=== PATIENT | female | born 1975 | race African-American/Black ===

== ENCOUNTER 2019-11-28 00:32 | Emergency (ER) | payer SELFPAY ==
[~2019-11-28] VITALS: Ht 162.6 cm; Wt 59.0 kg
--- NOTE | 2019-11-28 01:15 | PHYS DOC ---
Past History Past Medical History: Anxiety, GERD, Other Past Surgical History: Appendectomy, , Other Smoking: Cigarettes, Greater than 1 pack/day Alcohol Use: None Drug Use: Cocaine, Marijuana, Methamphetamine General Adult EDM: Chief Complaint: DRUG ABUSE HPI: HPI: "... I don't know what the fuck.. is going on.... I did about 10 dollars worth of meth yesterday.. smoked it.. but it did not feel like meth... I ve been fucked up in the head since.. seeing colors, sprinkled lights, high... not the meth feeling.. I do about meth at least 10 dollars a day.. smoke it.. and only shoot up once a year.. I do marijuana all day... but new toby gave me the meth.. that has fucked up my mind.. I was doing laundry. . at my friends house tonight.. and started really tripping.. really fucked up in the head... memory is messed up.. I can't focus... I know meth.. but that was not meth I did yesterday..." Patient is a 44 year old female who presents with complaints of hallucinations primarily visual after shooting up meth yesterday. Complains of difficulty in maintaining focus and memory since the IV drug use yesterday. Patient states she normally only smokes meth daily and only IV use maybe once or twice a year. Patient does smoke tobacco and marijuana daily. Patient denies any trauma. Patient denies any fever chills. Patient denies any travel outside the [place] area. Patient denies any history of immunosuppression. Patient normally follows at [facility]. Pt. follow-s with Dr. Brandon. Review of Systems: Review of Systems: Constitutional: Denies fever or chills Eyes: Denies change in visual acuity HENT: Denies nasal congestion or sore throat Respiratory: Denies cough or shortness of breath Cardiovascular: Denies chest pain or edema GI: Denies abdominal pain, nausea, vomiting, bloody stools or diarrhea : Denies dysuria Musculoskeletal: Denies back pain or joint pain Integument: Denies rash Neurologic: Denies headache, focal weakness or sensory changes Endocrine: Denies polyuria or polydipsia Lymphatic: Denies swollen glands Psychiatric: Complaints of visual hallucinations and anxiety Heart Score: HEART Score for Chest Pain: HEART Score for Chest Pain Response (Comments) Value History Slighlty/Non-Suspicious 0 ECG Nonspecific Repolarizatio 1 Age >45 - < 65 1 Risk Factors 1 or 2 Risk Factors 1 Troponin < Normal Limit 0 Total 3 Risk Factors: Risk Factors: DM, Current or recent (<one month) smoker, HTN, HLP, family history of CAD, obesity. Risk Scores: Score 0 - 3: 2.5% MACE over next 6 weeks - Discharge Home Score 4 - 6: 20.3% MACE over next 6 weeks - Admit for Clinical Observation Score 7 - 10: 72.7% MACE over next 6 weeks - Early Invasive Strategies Family History: Family History: Noncontributory Current Medications: Current Meds: See nursing for home meds Allergies: Allergies: Allergies Coded Allergies Type Severity Reaction Last Updated Verified Penicillins Allergy Unknown 10/21/13 No banana Allergy Unknown 03/19/16 Yes egg Allergy Unknown 03/19/16 Yes Physical Exam: PE: Constitutional: no acute distress, non-toxic appearance. [] HENT: Normocephalic, atraumatic, bilateral external ears normal, oropharynx moist, no oral exudates, nose normal. [] Eyes: PERRLA, EOMI, conjunctiva normal, no discharge. [] Neck: Normal range of motion, no tenderness, supple, no stridor. [] Cardiovascular: Tachycardia heart rate regular rhythm, no murmur [] Lungs & Thorax: Bilateral breath sounds equal apex with scattered wheezes on auscultation [] Abdomen: Bowel sounds normal, soft, no tenderness, no masses, no pulsatile masses. Old surgery scars Skin: Warm, dry, no erythema, no rash. Needle injection sites Back: No tenderness, no CVA tenderness. [] Extremities: No tenderness, no cyanosis, no clubbing, ROM intact, no edema. [] Neurologic: Alert and oriented X 3, normal motor function, normal sensory function, no focal deficits noted. DTRs +2 patella. Ambulatory without problems. No drift. Manager Of Finance equal. Psychologic: Affect anxious, judgement normal, mood normal. Complains of visual hallucinations Current Patient Data: Vital Signs: Vital Signs Date Time Temp Pulse Resp B/P (MAP) Pulse Ox O2 Delivery O2 Flow Rate FiO2 11/28/19 00:35 98.1 115 22 140/101 (114) 98 EKG: EKG: My interpretation of EKG shows a sinus tachycardia 101 bpm. Occasional PVC. Does have bimodal P waves and left leads. No findings of acute STEMI or contralateral changes. [] Radiology/Procedures: Radiology/Procedures: [[address] [address] IMAGING REPORT Signed PATIENT: BIRD CLIFTON ACCOUNT: [id number] : 1975 LOCATION: ER AGE: 44 SEX: F EXAM STATUS: PRE ER ORD. PHYSICIAN: JAZMINE MOMIN MD REASON: mental status change after smoking meth yesterday PROCEDURE: CT HEAD WO CONTRAST CT head without contrast: Reason for examination: Mental status change after smoking methamphetamine yesterday. Comparison is made to previous study dated 10/21/2013. Axial images were obtained through the brain. No contrast was administered. Exposure: One or more of the following individualized dose reduction techniques were utilized for this examination: 1. Automated exposure control 2. Adjustment of the mA and/or kV according to patient size 3. Use of iterative reconstruction technique. Ventricular systems are symmetric and not dilated. No midline shift is seen. There is no evidence of intracranial hemorrhage, infarct, mass or edema. No abnormalities are seen at the orbits. The paranasal sinuses and mastoid air cells are clear. No acute skull abnormality is seen. IMPRESSION: No acute intracranial abnormality evident. Electronically signed by: Pramod Danielle MD (11/28/2019 2:02 AM) [facility] DICTATED AND SIGNED BY: PRAMOD DANIELLE MD DATE: 11/28/19201 CC: JAZMINE MOMIN MD; ZI BRANDON MD ~ ][address] [address] IMAGING REPORT Signed PATIENT: BIRD CLIFTON ACCOUNT: [id number] : 1975 LOCATION: ER AGE: 44 SEX: F EXAM STATUS: PRE ER ORD. PHYSICIAN: JAZMINE MOMIN MD REASON: dyspnea, cough PROCEDURE: PORTABLE CHEST 1V Chest AP portable at 0143: Reason for examination: Dyspnea and cough. Comparison is made to previous study dated 10/21/2013. The heart size is normal. Mediastinum is unremarkable. Lung park are clear. A nodular density seen at the posterior ninth rib level probably represents a nipple shadow. No acute bony abnormalities are seen. Several metallic densities are seen consistent with BBs and have not changed. Impression: No acute cardiopulmonary disease. Electronically signed by: Pramod Danielle MD (11/28/2019 2:01 AM) [facility] DICTATED AND SIGNED BY: PRAMOD DANIELLE MD DATE: 11/28/19 020 CC: JAZMINE MOMIN MD; ZI BRANDON MD ~ Course & Med Decision Making: Course & Med Decision Making Pertinent Labs and Imaging studies reviewed. (See chart for details) Patient follow-up primary care. Patient avoid further methamphetamine use. Patient to consider follow-up with counseling center for drug rehab. Patient encouraged to stop smoking. Patient push fluids. Impression: 1. Chronic methamphetamine use 2. Tobacco marijuana use 3. Hallucinations after most recent methamphetamine IV use [] Dragon Disclaimer: Dragon Disclaimer: This electronic medical record was generated, in whole or in part, using a voice recognition dictation system. Departure Departure: Disposition: 01 HOME/RESIDENCE PRIOR TO ADM Condition: STABLE Referrals: ZI BRANDON MD (PCP) Dragon Disclaimer This chart was dictated in whole or in part using Voice Recognition software in a busy, high-work load, and often noisy Emergency Department environment. It may contain unintended and wholly unrecognized errors or omissions. Dragon Disclaimer This chart was dictated in whole or in part using Voice Recognition software in a busy, high-work load, and often noisy Emergency Department environment. It may contain unintended and wholly unrecognized errors or omissions. JAZMINE MOMIN MD Nov 28, 2019 01:15
[2019-11-28] MEDS ORDERED: IV RINGERS SOLUTION,LACTATED 1,000 ML IV SCH (01:30)
--- NOTE | 2019-11-28 02:03 | RAD ---
Chest AP portable at 0143: Reason for examination: Dyspnea and cough. Comparison is made to previous study dated 10/21/2013. The heart size is normal. Mediastinum is unremarkable. Lung park are clear. A nodular density seen at the posterior ninth rib level probably represents a nipple shadow. No acute bony abnormalities are seen. Several metallic densities are seen consistent with BBs and have not changed. Impression: No acute cardiopulmonary disease. Electronically signed by: Melissa Vee MD (11/28/2019 2:01 AM) [facility]
[2019-11-28 02:05] LABS: CALCIUM 9.8 mg/dL (8.5-10.1); CREATININE 0.9 mg/dL (0.6-1.0); GFR 81.9
--- NOTE | 2019-11-28 02:06 | RAD ---
CT head without contrast: Reason for examination: Mental status change after smoking methamphetamine yesterday. Comparison is made to previous study dated 10/21/2013. Axial images were obtained through the brain. No contrast was administered. Exposure: One or more of the following individualized dose reduction techniques were utilized for this examination: 1. Automated exposure control 2. Adjustment of the mA and/or kV according to patient size 3. Use of iterative reconstruction technique. Ventricular systems are symmetric and not dilated. No midline shift is seen. There is no evidence of intracranial hemorrhage, infarct, mass or edema. No abnormalities are seen at the orbits. The paranasal sinuses and mastoid air cells are clear. No acute skull abnormality is seen. IMPRESSION: No acute intracranial abnormality evident. Electronically signed by: Melissa Vee MD (11/28/2019 2:02 AM) [facility]
[2019-11-28 02:07] LABS: BASO # 0.1 x10^3/uL (0.0-0.2); BASO % 1 % (0-3); EOS % 1 % (0-3); HEMOGLOBIN 14.2 g/dL (12.0-15.5); LYMPH # 1.5 x10^3/uL (1.0-4.8); LYMPH % 28 % (24-48); MEAN CORPUSCULAR HEMOGLOBIN 27 pg (25-35); MEAN CORPUSCULAR HGB CONC 34 g/dL (31-37); MEAN CORPUSCULAR VOLUME 80 fL (79-100); MONO # 0.3 x10^3/uL (0.0-1.1); MONO % 5 % (0-9); NEUT # 3.4 x10^3uL (1.8-7.7); NEUT % 65 % (31-73); PLATELET COUNT 203 x10^3/uL (140-400); RED BLOOD COUNT 5.27 x10^6/uL (3.50-5.40); RED CELL DISTRIBUTION WIDTH 15.1 % (11.5-14.5); WHITE BLOOD COUNT 5.3 x10^3/uL (4.0-11.0)
[2019-11-28 02:12] LABS: ALBUMIN 4.4 g/dL (3.4-5.0); DIRECT BILIRUBIN 0.3 mg/dL (0.0-0.2); MAGNESIUM 2.2 mg/dL (1.8-2.4); TOTAL BILIRUBIN 1.1 mg/dL (0.2-1.0); TOTAL PROTEIN 8.5 g/dL (6.4-8.2)
[2019-11-28 02:23] LABS: PREG TEST PT QUAL NEGATIVE (NEG)
[2019-11-28 03:53] LABS: BARBITURATES NEG (NEG); BENZODIAZEPINES NEG (NEG); CANNABINOIDS POS (NEG); COCAINE NEG (NEG); METHADONE NEG (NEG); OPIATES NEG (NEG); PHENCYCLIDINE NEG (NEG)
--- NOTE | 2019-11-28 03:54 | EKG ---
[address] [address] Test Date: 2019-11-28 Test Time: 01:26:07 Pat Name: BIRD CLIFTON Department: Room: Gender: F Gift Consultant: KELLIE : 1975 Requested By: JAZMINE MOMIN Order Number: [id number] Reading MD: Measurements Intervals [place] Rate: 101 P: 66 KS: 144 QRS: 77 QRSD: 76 T: 71 QT: 374 QTc: 486 Interpretive Statements SINUS TACHYCARDIA VENTRICULAR PREMATURE COMPLEX(ES) LEFT ATRIAL ABNORMALITY ABNORMAL ECG RI6.02 No previous ECG available for comparison
[2019-11-28 03:58] LABS: BILIRUBIN,URINE NEG (NEG); CLARITY,URINE HAZY; COLOR,URINE YELLOW; GLUCOSE,URINE NEG (NEG); NITRITE,URINE NEG (NEG); UROBILINOGEN,URINE 0.2 mg/dL (0.2 mg/dL)
[2019-11-28 03:59] LABS: BACTERIA,URINE FEW /HPF (0-FEW); SQUAMOUS EPITHELIAL CELL,UR FEW /LPF
[2019-11-28 04:00] LABS: AMORPHOUS SEDIMENT,UR PRESENT /HPF
[2019-11-28 04:07] LABS: AMPHETAMINE/METHAMPHETAMINE POS (NEG)
[2019-11-28 04:19] VITALS: BP 98/72
== END 2019-11-28 04:52 | disposition home or self-care (01) ==
LOC: ER 00:32
DX: F15.10 Other stimulant abuse, uncomplicated (principal); R44.1 Visual hallucinations; F41.9 Anxiety disorder, unspecified; K21.9 Gastro-esophageal reflux disease without esophagitis; F17.210 Nicotine dependence, cigarettes, uncomplicated; F14.10 Cocaine abuse, uncomplicated; F12.10 Cannabis abuse, uncomplicated; Z88.0 Allergy status to penicillin; Z91.018 Allergy to other foods; Z91.012 Allergy to eggs
CPT/HCPCS: 36415; 70450; 71045; 80048; 80076; 80307; 81001; 82550; 83735; 84443; 84484; 84703; 85025; 93005; 96360; 99285; J7120

== ENCOUNTER 2020-01-27 18:18 | Emergency (ER) | payer SELFPAY ==
[~2020-01-27] VITALS: Ht 162.6 cm; Wt 59.0 kg
[2020-01-27 18:40] VITALS: BP 134/98
--- NOTE | 2020-01-27 19:28 | PHYS DOC ---
Past History Past Medical History: Anxiety, GERD, Other (OLVIN ZIMMERMAN APRN) Past Surgical History: Appendectomy, , Other (OLVIN ZIMMERMAN APRN) Smoking: Cigarettes, Greater than 1 pack/day Alcohol Use: None Drug Use: Cocaine, Marijuana, Methamphetamine (OLVIN ZIMMERMAN APRN) General Adult EDM: Chief Complaint: ANXIETY/PANIC ATTACK HPI: HPI: Patient is a 45-year-old AA female who presents to the emergency department with complaints of anxiety since last night. Patient denies any suicidal or homicidal ideations. She denies any visual or auditory hallucinations. She states that she feels so anxious that she is having a hard time shutting her mind off and is having difficulty sleeping. Patient denies any recent stressors in her life. She states that she did smoke some methamphetamine last night. Patient denies any fever, cough, shortness of breath, chest pain, abdominal pain, nausea, vomiting, diarrhea, headache, vision changes, numbness, tingling, or weakness. She currently denies any pain. (OLVIN ZIMMERMAN APRN) Review of Systems: Review of Systems: Complete ROS is negative unless otherwise noted in HPI. (OLVIN ZIMMERMAN APRN) Allergies: Allergies: Allergies Coded Allergies Type Severity Reaction Last Updated Verified Penicillins Allergy Unknown 10/21/13 No banana Allergy Unknown 03/19/16 Yes egg Allergy Unknown 03/19/16 Yes (OLVIN ZIMMERMAN APRN) Physical Exam: PE: See Above Constitutional: Well developed, well nourished, no acute distress, non-toxic appearance, thin. [] HENT: Normocephalic, atraumatic, bilateral external ears normal, nose normal. [] Eyes: PERRLA, EOMI, conjunctiva normal, no discharge. [] Neck: Normal range of motion, no stridor. [] Cardiovascular:Heart rate regular rhythm Lungs & Thorax: Respirations even and unlabored, no retractions, no respiratory distress Skin: Warm, dry, no erythema, no rash. [] Extremities: No cyanosis, ROM intact, no edema. [] Neurologic: Alert and oriented X 3, no focal deficits noted. [] Psychologic: Affect normal, judgement normal, mood anxious (OLVIN ZIMMERMAN APRN) Current Patient Data: Vital Signs: Vital Signs Date Time Temp Pulse Resp B/P (MAP) Pulse Ox O2 Delivery O2 Flow Rate FiO2 01/27/20 18:40 116 24 134/98 (110) 98 (OLVIN ZIMMERMAN APRN) EKG: EKG: [] (OLVIN ZIMMERMAN APRN) Radiology/Procedures: Radiology/Procedures: [] (OLVIN ZIMMERMAN APRN) Heart Score: Risk Factors: Risk Factors: DM, Current or recent (<one month) smoker, HTN, HLP, family history of CAD, obesity. Risk Scores: Score 0 - 3: 2.5% MACE over next 6 weeks - Discharge Home Score 4 - 6: 20.3% MACE over next 6 weeks - Admit for Clinical Observation Score 7 - 10: 72.7% MACE over next 6 weeks - Early Invasive Strategies (OLVIN ZIMMERMAN APRN) Course & Med Decision Making: Course & Med Decision Making Pertinent Labs and Imaging studies reviewed. (See chart for details) 45-year-old female presented to the emergency room with reports of anxiety after smoking methamphetamine last night. During my exam the patient's heart rate was in the 80-100 range. Vital signs were stable. The patient denied any acute medical problems. She denies any suicidal or homicidal ideations. I advised the patient that her anxiety is most likely related to her methamphetamine use. I encouraged her to stop using methamphetamine. Patient states that she does not want treatment for methamp hetamine addiction at this time. Patient was medically screened and chose to discontinue the visit after speaking with registration. [] (OLVIN ZIMMERMAN APRN) Dragon Disclaimer: Dragon Disclaimer: This electronic medical record was generated, in whole or in part, using a voice recognition dictation system. (OLVIN ZIMMERMAN APRN) Departure Departure: Impression: Primary Impression: Methamphetamine-induced anxiety disorder Additional Impression: Encounter for medical screening examination Disposition: 01 DC HOME SELF CARE/HOMELESS Condition: STABLE Referrals: PCP,NO (PCP) Attending Signature Attending Signature I have reviewed the PA/DUMPSTER DRIVER's note and plan of care. I was available for consultation as needed during the patient's visit in the emergency department. I agree with the clinical impression, plan, and disposition. (SAADIA TAYLOR DO) OLVIN ZIMMERMAN APRN Jan 27, 2020 19:27 SAADIA TAYLOR DO Jan 28, 2020 00:11
== END 2020-01-27 19:01 | disposition home or self-care (01) ==
LOC: ER 18:18
DX: F41.9 Anxiety disorder, unspecified (principal); K21.9 Gastro-esophageal reflux disease without esophagitis; F12.90 Cannabis use, unspecified, uncomplicated; F14.90 Cocaine use, unspecified, uncomplicated; F19.90 Other psychoactive substance use, unspecified, uncomplicated; F17.210 Nicotine dependence, cigarettes, uncomplicated; Z90.89 Acquired absence of other organs; Z98.890 Other specified postprocedural states; Z88.0 Allergy status to penicillin; Z91.018 Allergy to other foods; Z91.012 Allergy to eggs
CPT/HCPCS: 99281